=== PATIENT | male | born 1940 | race Caucasian/White ===

== ENCOUNTER 2024-10-22 14:20 | Emergency (ER) | payer MEDICARE, SELFPAY ==
[2024-10-22 14:29] VITALS: BP 170/75; PULSE 88; RESP 18; TEMP 37.4; O2SAT 96; BMI 25.1
--- NOTE | 2024-10-22 14:30 | XR_ITS ---
Examination: CT abdomen with intravenous contrast CT pelvis with intravenous contrast 2-D coronal reconstructions 2-D sagittal reconstructions Date and time of exam:October 22, 2024 1105 hours INDICATIONS: Abdominal pain beginning 2 days ago. CTDI: vol (mGy) 8.31 DLP: (mGycm) 488 Technique: Multiple axial sections of the abdomen and pelvis have been obtained. 64 slice high-resolution scanner used. 3 mm axial sections have been obtained, post intravenous injection 60 cc [id number]-370 2-D sagittal, coronal reconstructions obtained. Low dose protocols were performed. One or more of the following dose reduction techniques were used; automated exposure control, adjustment of the mA and/or KV according to patient size, use of iterative reconstruction technique. Findings: No focal liver or splenic lesions No gallstones No pancreatic or adrenal mass No renal or ureteral calculi, no hydronephrosis Perinephric stranding Aorta normal size Necrotic mass in the anterior mesentery lower abdomen, at least 9 x 8 cm Significant prostatomegaly with irregular contour No diverticulitis Moderate osteopenia IMPRESSION: Large necrotic soft tissue mass in the anterior lower abdomen, differential would include sarcoma, metastatic soft tissue tumor mass, Hodgkin's disease non-Hodgkin's lymphoma This mass is amenable to CT-guided. Then his biopsy for diagnosis
--- NOTE | 2024-10-22 14:31 | PD.EDRME ---
Rapid Medical Screening Exam RME Arrival date/time: 10/22/24 14:20 84-year-old male presents to the Emergency Department today for complaints of right-sided abdominal pain Chief Complaint: Abdominal Pain Vital signs: Vital Signs Temperature 99.3 F 10/22/24 14:29 Pulse Rate 88 10/22/24 14:29 Respiratory Rate 18 10/22/24 14:29 Blood Pressure 170/75 H 10/22/24 14:29 Pulse Oximetry (%) 96 10/22/24 14:29 Oxygen Delivery Method Room Air 10/22/24 14:29
[2024-10-22 15:02] LABS: Collection Type, Urine Clean Catch
[2024-10-22 15:21] LABS: Bilirubin,Urine Negative (Negative); Blood,Urine Negative (Negative); Clarity,Urine Clear (Clear/Hazy); Color,Urine Yellow (Lt Yel-Yel); Culture Indicated,Urine Not Indicated; Glucose, Urine Negative (Negative); Ketones,Urine Negative (Negative); Leukocyte Esterase,Urine Negative (Negative); Nitrite,Urine Negative (Negative); PH,Urine 5.5 (5.0-7.0); Protein,Urine Trace (Neg - Trace); RBC,Urine 3 /hpf (0-3); Specific Gravity,Urine 1.031 (1.001-1.035); Squamous Epithelial Cell,Urine < 1 /hpf (0-5); WBC,Urine 1 /hpf (0-5)
[2024-10-22 15:28] LABS: Lactate (Lactic Acid) 0.9 mMol/L (0.4-2.0)
[2024-10-22 15:30] LABS: Basophils # (Auto) 0.1 Thou/mm3 (0.0-0.2); Basophils % (Auto) 1 % (0-2.5); Eosinophils # (Auto) 0.2 Thou/mm3 (0.0-0.5); Eosinophils % (Auto) 2 % (0-10); Hematocrit 39.5 % (41.0-53.0); Hemoglobin 13.7 g/dL (13.5-16.0); Immature Granulocytes % (Auto) 0 % (0-0); Immature Granulocytes Auto 0.04 Thou/mm3 (0.00-0.00); Lymphocytes # (Auto) 1.5 Thou/mm3 (1.0-4.8); Lymphocytes % (Auto) 14 % (10-50); Mean Corpuscular HGB Conc 34.7 g/dl (31.0-37.0); Mean Corpuscular Hemoglobin 31.2 pg (25.0-35.0); Mean Corpuscular Volume 90 fL (80-100); Monocytes # (Auto) 1.1 Thou/mm3 (0.0-0.8); Monocytes % (Auto) 11 % (0-12); Neutrophils # (Auto) 7.7 Thou/mm3 (1.8-7.7); Neutrophils % (Auto) 73 % (37-80); Nucleated Red Blood Cell % 0 /100 WBC (0); Platelet Count 193 Thou/mm3 (140-440); RDW Standard Deviation 41.5 fL (35.1-43.9); Red Blood Count 4.39 Miln/mm3 (4.50-5.90); White Blood Count 10.6 Thou/mm3 (3.8-10.6)
[2024-10-22 15:57] LABS: Alanine Aminotransferase 54 U/L (10-49); Albumin, Serum 4.3 gm/dL (3.4-4.8); Albumin/Globulin Ratio 1.7 (1.2-2.2); Alkaline Phosphatase 182 U/L (46-116); Anion Gap 8 (7-16); Aspartate Amino Transferase 51 U/L (0-34); BUN/Creatinine Ratio 18 Ratio (12-20); Bilirubin,Total 0.4 mg/dL (0.3-1.2); Blood Urea Nitrogen 20 mg/dL (9-23); Calcium 8.9 mg/dL (8.3-10.6); Calcium (Corrected) 8.9 mg/dL (8.5-10.1); Carbon Dioxide 26.5 mMol/L (20.0-31.0); Chloride 102 mMol/L (98-107); Creatinine (Component) 1.1 mg/dL (0.6-1.3); Estimated Creatinine Clearance 51.6 mL/min (>60); Globulin 2.6 gm/dL (2.3-3.5); Glucose 110 mg/dL (74-106); Lipase 37 U/L (12-53); Osmolality,Calculated 275 (275-295); Potassium 3.8 mMol/L (3.4-5.1); Procalcitonin 0.11 ng/ml (0.0-0.49); Sodium 136 mMol/L (136-145); Total Protein 6.9 gm/dL (5.7-8.2); eGFR > 60 See Note
[2024-10-23 01:02] VITALS: BP 148/81; PULSE 73; RESP 17; TEMP 37.3; O2SAT 96
--- NOTE | 2024-10-23 01:22 | PD.EDABDPN ---
ED Abdominal Pain RME/HPI General Chief Complaint: Abdominal Pain Stated complaint: ABD PAIN Time seen by provider: 10/22/24 18:45 Arrival date/time: 10/22/24 14:20 RME / HPI RME / HPI narrative: 10/22/24 14:20 84-year-old male presents to the Emergency Department today for complaints of right-sided abdominal pain This section includes all my notes and documentations, including HPI, PE, and ED course. Neto Akins MD HPI: 84 y/o male presents to ED c/o generalized abdominal pain x 5 days. Vomited when the pain started 5 days ago. Per , patient has been eating less for the last 2-3 days. Denies any abdominal surgery in the past. No weight loss. No changes in energy level. No other complaints. ROS: All negative except as documented in HPI. Physical Exam: General: Alert and oriented. No acute distress when remaining still. Eyes: Conjunctivae and lids clear. ENT: No nasal congestion. Neck: Supple. Heart: RRR. Lungs: No respiratory distress. Good air movement. No rhonchi, wheezing, rales. Abdomen: Soft and nontender. Normal bowel sounds. No distension. No rebound or guarding. Back: No CVA tenderness. Skin: Warm and dry. Neuro: Alert and oriented X 3. I reviewed all diagnostic test results. My review of the Abdomen/Pelvis CT report is large necrotic soft tissue mass in the anterior lower abdomen. Blood tests and urine tests unremarkable. At this point, diagnoses include abdominal mass. Patient declined help with pain. After discussion, pain requested discharge home and will return tomorrow for potential biopsy. Based on my best medical judgment, made decision no further evaluation or treatment indicated at this time. Patient understands and agrees to the discharge instructions customized and printed, see below. Discharge Instructions from Dr. Akins printed for you: 1. After evaluation, you have intra-abdominal mass measuring 9 X 8 cm. We won't know the exact cause/identity of the mass until biopsy. 2. After discussing with you and your potential hospitalization and transfer to another facility, decision was made for you to go home. Since you declined any help with pain, no pain medication was prescribed. 3. We have interventional radiologist who can perform the CT-guided biopsy for you on Thursday. So you can come here again on Thursday morning (10/23/2024) as a new ER patient for the biopsy. 4. Seek immediate medical care with intolerable pain, fever, or with any concerns. Neto Akins MD Related Data Home Medications ?Medication ?Instructions ?Recorded ?Confirmed No Known Home Medications 09/14/17 09/14/17 Allergies Allergy/AdvReac Type Severity Reaction Status Date / Time fluconazole (From Diflucan) Allergy welts rash Verified 10/22/24 14:24 Review of Systems Review of Systems Systems Reviewed: All systems reviewed, normal except as documented ED Exam Narrative Physical exam: Refer to HPI above. Course Quality Measures none Orders Category Date Time Status CT Screening NOW Care 10/22/24 14:31 Active Insert IV NOW Care 10/22/24 14:[address] abdomen pelvis w con Stat Exams 10/22/24 14:30 Completed Blood Culture (Lab) Stat Lab 10/22/24 15:18 Received CBC Stat Lab 10/22/24 15:21 Completed Comprehensive Metabolic Panel Stat Lab 10/22/24 15:21 Completed Lactic Acid [Lactate (Lactic Acid)] Stat Lab 10/22/24 15:21 Completed Lipase Stat Lab 10/22/24 15:21 Completed Procalcitonin Stat Lab 10/22/24 15:21 Completed UA, C/S IF [Urinalysis, C/S if Indicated] Stat Lab 10/22/24 14:45 Completed Vital Signs Vital signs: Vital Signs Temperature 99.3 F 10/22/24 14:29 Pulse Rate 88 10/22/24 14:29 Respiratory Rate 18 10/22/24 14:29 Blood Pressure 170/75 H 10/22/24 14:29 Pulse Oximetry (%) 96 10/22/24 14:29 Oxygen Delivery Method Room Air 10/22/24 14:29 Abdominal Pain MDM MDM Narrative MDM Narrative:: Scribe Attestation: Ame Leonard, am scribing for and in the presence of Dr. Akins. Provider Notation: Although this document has been carefully reviewed, there may still be some phonetic and other typographical errors.? These errors are purely grammatical due to imperfections in the software program and should not be construed in any way to? compromise the substance of the patient's medical care during this visit. 84 y/o male presents to ED c/o generalized abdominal pain, intermittent fever, nausea, and vomiting x 5 days. Patient data External records reviewed:: [facility] previous records (No recent ED records available for review.) Clinical information provided by:: patient Social determinants that could affect healthcare access:: none Patient has the following chronic illnesses:: None reported How is presenting disease/condition affected by chronic disease/condition?: no chronic disease Evaluation data The following diagnostics were reviewed and interpreted by me:: lab results and radiology exam(s) Lab and/or radiology exams considered but not ordered:: None Interpretation Summary: I reviewed all diagnostic test results. My review of the Abdomen/Pelvis CT report is large necrotic soft tissue mass in the anterior lower abdomen. Blood tests and urine tests unremarkable. Medications / Prescriptions Medications or Prescriptions considered but not ordered:: None Medication administrations:: N/A Consultations Consultation(s) initiated? (list below): No Diagnosis Differential diagnosis abdominal pain: abdominal pain, acute appendicitis, calculus of kidney, constipation, diverticulitis, gastroenteritis, pancreatitis and small bowel obstruction Most likely diagnosis given after review of the tests above:: Abdominal mass of unclear etiology. Admission Indicated Admission indicated?: not indicated Explain why admission is indicated or not indicated:: There was no indication for admission. Admission Request Was there a request for admission?: No Disposition Plan Disposition Plan: Discharge Discharge Attestation Discharge Attestation: The patient and all family members were given an opportunity to ask questions and understood the discharge instructions. Discharge instructions specifically effects, indications for sooner follow up or return to the emergency department, and the expected course of current diagnosis. Patient condition: Stable Discharge Plan Plan Patient Disposition: HOME (Self Care) Prescriptions/Referrals Prescriptions/Med Rec: No Action No Known Home Medications Referrals: No Primary/Family,Physician [Primary Care Provider] - In 1 week Problem List Clinical Impression: Abdominal mass Patient/Caregiver Discharge Instructions Discharge Activity: activity as tolerated Education Materials: ED Tumor, Uncertain Cause Additional Instructions: Discharge Instructions from Dr. Akins printed for you: 1. After evaluation, you have intra-abdominal mass measuring 9 X 8 cm. We won't know the exact cause/identity of the mass until biopsy. 2. After discussing with you and your potential hospitalization and transfer to another facility, decision was made for you to go home. Since you declined any help with pain, no pain medication was prescribed. 3. We have interventional radiologist who can perform the CT-guided biopsy for you on Thursday. So you can come here again on Thursday morning (10/23/2024) as a new ER patient for the biopsy. 4. Seek immediate medical care with intolerable pain, fever, or with any concerns. Print Language: Yakut Stand Alone Forms: [employer] Info., Patient Portal Info Letter
== END 2024-10-23 02:01 | disposition home or self-care (01) ==
PROVIDERS: Nurse Practitioner Primary Care; Emergency Provider Emergency Medicine
DX: R19.03 Right lower quadrant abdominal swelling, mass and lump (principal)
CPT/HCPCS: 36415; 74177; 80053; 81001; 83605; 83690; 84145; 85025; 87040; 99285; A4649; Q9967

== ENCOUNTER 2024-10-24 08:13 | Emergency (ER) | payer MEDICARE, SELFPAY ==
--- NOTE | 2024-10-24 08:42 | PD.EDRME ---
Rapid Medical Screening Exam RME Arrival date/time: 10/24/24 08:13 84-year-old male with no known medical history presents to the emergency room with a chief complaint of abdominal pain and distention. Patient states he was seen here 2 days ago and a CT found a tumor in his abdomen. Patient was given instructions by Dr. Akins To return today for biopsy of the tumor. I have greeted and performed a focused initial assessment of this patient. A comprehensive ED assessment and evaluation of the patient, analysis of all test results, and completion of the medical decision making process will be conducted by additional ED providers. Chief Complaint: General Adult/Misc Complain Time Seen by Provider: 10/24/24 08:28 Vital signs reviewed by provider: Yes
[2024-10-24 08:44] VITALS: BP 142/78; PULSE 95; RESP 18; TEMP 37.2; O2SAT 96; BMI 25.2
[2024-10-24 09:48] LABS: Basophils # (Auto) 0.1 Thou/mm3 (0.0-0.2); Basophils % (Auto) 1 % (0-2.5); Eosinophils # (Auto) 0.2 Thou/mm3 (0.0-0.5); Eosinophils % (Auto) 2 % (0-10); Hematocrit 42.4 % (41.0-53.0); Immature Granulocytes % (Auto) 0 % (0-0); Immature Granulocytes Auto 0.05 Thou/mm3 (0.00-0.00); Lymphocytes # (Auto) 1.4 Thou/mm3 (1.0-4.8); Lymphocytes % (Auto) 11 % (10-50); Mean Corpuscular Hemoglobin 30.8 pg (25.0-35.0); Mean Corpuscular Volume 93 fL (80-100); Monocytes # (Auto) 1.2 Thou/mm3 (0.0-0.8); Monocytes % (Auto) 9 % (0-12); Neutrophils # (Auto) 9.8 Thou/mm3 (1.8-7.7); Neutrophils % (Auto) 77 % (37-80); Nucleated Red Blood Cell % 0 /100 WBC (0); Platelet Count 228 Thou/mm3 (140-440); RDW Standard Deviation 42.4 fL (35.1-43.9); Red Blood Count 4.54 Miln/mm3 (4.50-5.90); White Blood Count 12.7 Thou/mm3 (3.8-10.6)
[2024-10-24 09:59] LABS: Partial Thromboplastin Time 26.7 Seconds (22.0-36.0); Prothrombin Time 11.2 Seconds (9.0-12.2)
[2024-10-24 10:07] LABS: Alanine Aminotransferase 39 U/L (10-49); Albumin, Serum 4.4 gm/dL (3.4-4.8); Albumin/Globulin Ratio 1.7 (1.2-2.2); Alkaline Phosphatase 175 U/L (46-116); Anion Gap 10 (7-16); Aspartate Amino Transferase 21 U/L (0-34); BUN/Creatinine Ratio 12 Ratio (12-20); Bilirubin,Total 0.6 mg/dL (0.3-1.2); Blood Urea Nitrogen 13 mg/dL (9-23); Carbon Dioxide 28.5 mMol/L (20.0-31.0); Chloride 102 mMol/L (98-107); Creatinine (Component) 1.1 mg/dL (0.6-1.3); Estimated Creatinine Clearance 51.6 mL/min (>60); Globulin 2.6 gm/dL (2.3-3.5); Glucose 122 mg/dL (74-106); Osmolality,Calculated 280 (275-295); Potassium 4.2 mMol/L (3.4-5.1); Sodium 140 mMol/L (136-145); eGFR > 60 See Note
[2024-10-24 11:48] VITALS: BP 162/74; PULSE 67; RESP 17; TEMP 36.8; O2SAT 97
--- NOTE | 2024-10-24 12:15 | PD.EDABDPN ---
ED Abdominal Pain RME/HPI General Chief Complaint: General Adult/Misc Complain Stated complaint: CHECKING IN FOR BIOPSY Time seen by provider: 10/24/24 08:28 Arrival date/time: 10/24/24 08:13 Limitations: no limitations RME / HPI RME / HPI narrative: 10/24/24 08:13 84-year-old male with no known medical history presents to the emergency room with a chief complaint of abdominal pain and distention. Patient states he was seen here 2 days ago and a CT found a tumor in his abdomen. Patient was given instructions by Dr. Akins To return today for biopsy of the tumor. I have greeted and performed a focused initial assessment of this patient. A comprehensive ED assessment and evaluation of the patient, analysis of all test results, and completion of the medical decision making process will be conducted by additional ED providers. DR. ANDERSON MAIN ED EVALUATION: 84 year old male presents to the Emergency Department accompanied by his with complaint of abdominal pain and distention. Patient was seen on 10/22/[address] they found a tumor and was told to return for a biopsy of the tumor today. He has been having symptoms for about a week now. He states his stomach feels like a swollen ball . Per , patient had a fever of 101.0 on Thursday of last week, none since. Patient denies any weight loss, shortness of breath, or any other symptoms at this time. Patient denies any current PCP, last one was Dr. Eisenberg years ago. Related Data Home Medications ?Medication ?Instructions ?Recorded ?Confirmed No Known Home Medications 09/14/17 09/14/17 Allergies Allergy/AdvReac Type Severity Reaction Status Date / Time fluconazole (From Diflucan) Allergy welts rash Verified 10/24/24 08:18 Review of Systems Review of Systems Systems Reviewed: All systems reviewed, normal except as documented Past Medical History Past Medical History OTHER HISTORY: Positive Shingles Social History SMOKING STATUS: Never smoker SUBSTANCE USE: does not use ALCOHOL: Never ED Exam General Limitations: Present no limitations General appearance: Present alert and in no apparent distress Head Head exam: Present atraumatic, normocephalic and normal inspection Eye Eye exam: Present normal appearance, PERRL and EOMI ENT ENT exam: Present normal exam, normal oropharynx and mucous membranes moist Neck Neck exam: Present normal inspection, full ROM and trachea midline Chest Chest inspection: Present normal inspection and symmetric chest wall rise Respiratory Respiratory exam: Present normal lung sounds bilaterally Cardiovascular Cardiovascular exam: Present regular rate, normal rhythm and normal heart sounds Abdominal Exam Abdominal exam: Present distention, tenderness (slight tenderness in the mid left abdomen area) and normal bowel sounds; Absent rebound Extremities Exam Extremities exam: Present normal inspection and full ROM Back Exam Back exam: Present normal inspection and full ROM Neurological Exam Neurological exam: Present alert, oriented X3 and CN II-XII intact Psychiatric Psychiatric exam: Present normal affect and normal mood Skin Skin exam: Present warm, dry, intact and normal color Course Quality Measures none Orders Category Date Time Status CT biopsy abdomen percutaneous Stat Exams 10/24/24 08:40 Ordered CBC Stat Lab 10/24/24 09:25 Completed CMP [Comprehensive Metabolic Panel] Stat Lab 10/24/24 09:25 Completed PT [Prothrombin Time with INR] Stat Lab 10/24/24 09:25 Completed PTT [Partial Thromboplastin Time] Stat Lab 10/24/24 09:25 Completed Vital Signs Vital signs: Vital Signs Temperature 99.0 F 10/24/24 08:44 Pulse Rate 95 10/24/24 08:44 Respiratory Rate 18 10/24/24 08:44 Blood Pressure 142/78 H 10/24/24 08:44 Pulse Oximetry (%) 96 10/24/24 08:44 Oxygen Delivery Method Room Air 10/24/24 08:44 Abdominal Pain MDM MDM Narrative MDM Narrative:: IPreethi am scribing for and in the presence of Dr. Anderson. Patient data External records reviewed:: [facility] previous records (Reviewed last ED visit dated 10/22/24 discharged with the following: Abdominal mass) Clinical information provided by:: patient and spouse Social determinants that could affect healthcare access:: none Patient has the following chronic illnesses:: Abdominal mass recently found in CT otherwise no other PMHx. How is presenting disease/condition affected by chronic disease/condition?: exacerbated by Evaluation data The following diagnostics were reviewed and interpreted by me:: lab results and radiology exam(s) Lab and/or radiology exams considered but not ordered:: none Interpretation Summary: Procedure(s): CT abdomen pelvis w con Accession Number(s): [id number] cc: Faisal (BOLA),Lobito PLAZA; Jorge Allen MD; NO PRIMARY/FAMILY,PHYSICIAN~ Examination: CT abdomen with intravenous contrast CT pelvis with intravenous contrast 2-D coronal reconstructions 2-D sagittal reconstructions Date and time of exam:October 22, 2024 1105 hours INDICATIONS: Abdominal pain beginning 2 days ago. CTDI: vol (mGy) 8.31 DLP: (mGycm) 488 Technique: Multiple axial sections of the abdomen and pelvis have been obtained. 64 slice high-resolution scanner used. 3 mm axial sections have been obtained, post intravenous injection 60 cc [id number]-370 2-D sagittal, coronal reconstructions obtained. Low dose protocols were performed. One or more of the following dose reduction techniques were used; automated exposure control, adjustment of the mA and/or KV according to patient size, use of iterative reconstruction technique. Findings: No focal liver or splenic lesions No gallstones No pancreatic or adrenal mass No renal or ureteral calculi, no hydronephrosis Perinephric stranding Aorta normal size Necrotic mass in the anterior mesentery lower abdomen, at least 9 x 8 cm Significant prostatomegaly with irregular contour No diverticulitis Moderate osteopenia IMPRESSION: Large necrotic soft tissue mass in the anterior lower abdomen, differential would include sarcoma, metastatic soft tissue tumor mass, Hodgkin's disease non-Hodgkin's lymphoma This mass is amenable to CT-guided. Then his biopsy for diagnosis Dictated By: Jorge Allen MD Medications / Prescriptions Medications or Prescriptions considered but not ordered:: none Medication administrations:: none Consultations Consultation(s) initiated? (list below): No Diagnosis Differential diagnosis abdominal pain: abdominal pain, constipation and other (Abdominal mass) Most likely diagnosis given after review of the tests above:: Abdominal mass Admission Indicated Admission indicated?: not indicated Admission Request Was there a request for admission?: No Disposition Plan Disposition Plan: Discharge Discharge Attestation Discharge Attestation: The patient and all family members were given an opportunity to ask questions and understood the discharge instructions. Discharge instructions specifically effects, indications for sooner follow up or return to the emergency department, and the expected course of current diagnosis. Patient condition: Stable Discharge Plan Plan Patient Disposition: HOME (Self Care) Patient condition on transfer: Stable Prescriptions/Referrals Prescriptions/Med Rec: No Action No Known Home Medications Referrals: Luli Mcbride MD [Physician] - 10/25/24 No Primary/Family,Physician [Primary Care Provider] - In 1 week Problem List Clinical Impression: Abdominal mass Patient/Caregiver Discharge Instructions Additional Instructions: Please follow up with Dr. Mcbride. Please follow-up with your primary care physician within a week. Return to the Emergency Department as needed. If you need a primary doctor you can go to the residents clinic: [address] [place] [id number] Print Language: [place]i Stand Alone Forms: [employer] Info., Work/School Release, Patient Portal Info Letter
[2024-10-24 13:20] VITALS: BP 146/78; PULSE 79; RESP 17; TEMP 37; O2SAT 98
== END 2024-10-24 13:39 | disposition home or self-care (01) ==
PROVIDERS: Nurse Practitioner Family; Emergency Provider Family Medicine
DX: R19.00 Intra-abdominal and pelvic swelling, mass and lump, unspecified site (principal)
CPT/HCPCS: 36415; 80053; 85025; 85610; 85730; 99283

== ENCOUNTER 2024-11-03 08:00 | Outpatient (CLI) | payer MEDICARE, SELFPAY ==
[2024-11-01 18:27] VITALS: BMI 22.9
[2024-11-03] VITALS (8 sets, daily range): BP systolic 106–149; BP diastolic 53–89; PULSE 69–90; RESP 12–20; TEMP 36.4–36.7; O2SAT 95–99
[2024-11-03 08:58] LABS: Basophils # (Auto) 0.1 Thou/mm3 (0.0-0.2); Basophils % (Auto) 1 % (0-2.5); Eosinophils # (Auto) 0.1 Thou/mm3 (0.0-0.5); Eosinophils % (Auto) 1 % (0-10); Hematocrit 42.3 % (41.0-53.0); Hemoglobin 14.4 g/dL (13.5-16.0); Immature Granulocytes % (Auto) 1 % (0-0); Immature Granulocytes Auto 0.05 Thou/mm3 (0.00-0.00); Lymphocytes # (Auto) 1.4 Thou/mm3 (1.0-4.8); Lymphocytes % (Auto) 14 % (10-50); Mean Corpuscular Hemoglobin 30.6 pg (25.0-35.0); Mean Corpuscular Volume 90 fL (80-100); Monocytes # (Auto) 0.9 Thou/mm3 (0.0-0.8); Monocytes % (Auto) 9 % (0-12); Neutrophils # (Auto) 7.4 Thou/mm3 (1.8-7.7); Neutrophils % (Auto) 74 % (37-80); Nucleated Red Blood Cell % 0 /100 WBC (0); Platelet Count 299 Thou/mm3 (140-440); RDW Standard Deviation 40.8 fL (35.1-43.9)
[2024-11-03 09:09] LABS: Blood Urea Nitrogen 16 mg/dL (9-23); Creatinine (Component) 1.1 mg/dL (0.6-1.3); Estimated Creatinine Clearance 51.3 mL/min (>60); eGFR > 60 See Note
--- NOTE | 2024-11-03 09:30 | XR_ITS ---
Examination: CT-guided percutaneous biopsy anterior abdominal mass CT abdomen without intravenous contrast Date and time of procedure: November 03, 2024 1040 hours INDICATIONS: Large necrotic soft tissue mass in the anterior lower abdomen on CT abdomen pelvis October 22, 2024 Informed consent provided. A timeout was completed verifying correct patient, procedure, site and positioning. Technique: Axial 3 mm sections were obtained for localization of the soft tissue mass anterior abdomen Appropriate area is marked. The patient's site was prepped and draped in sterile fashion Maximal sterile barrier technique utilized, including hand hygiene Local anesthesia was obtained with 1% lidocaine. Low dose protocols were performed. One or more of the following dose reduction techniques were used; automated exposure control, adjustment of the mA and/or KV according to patient size, use of iterative reconstruction technique. Utilizing CT fluoroscopic guidance for core biopsies obtained of the soft tissue mass abdomen Patient appears in stable condition during this procedure. At completion of the procedure, the patient is in satisfactory condition. Estimated blood loss 0 cc Complete pathology report to follow. Impression: Successful CT-guided percutaneous biopsy anterior abdominal mass
[2024-11-03] MEDS: SODIUM CHLORIDE 0.9% 500 ML 500 ML 20 ML IV (11:00)
[2024-11-03] MEDS: fentaNYL CIT INJ 50 mCg/ML AMP 2ML IVP (11:01)
[2024-11-03 11:30] LABS: INR 1.1 (0.9-1.3); Partial Thromboplastin Time 27.2 Seconds (22.0-36.0); Prothrombin Time 11.6 Seconds (9.0-12.2)
--- NOTE | 2024-11-03 12:10 | PC.NURSE ---
patient transfered to private vehicle via wheelchair. dressing clean dry and intact. education given to both patient and spouse. both expressed verbal understanding. specimen drop off at designated location for parts picker.
== END 2024-11-03 12:12 | disposition home or self-care (01) ==
PROVIDERS: Radiology Diagnostic Radiology; PCP Student in an Organized Health Care Education/Training Program; Referring Provider Student in an Organized Health Care Education/Training Program; Visit Provider Student in an Organized Health Care Education/Training Program
DX: M79.89 Other specified soft tissue disorders (principal)
CPT/HCPCS: 49180; 36415; 77012; 82565; 84520; 85025; 85610; 85730; J3010; J7040

== ENCOUNTER → 2024-12-21 | Outpatient (CLI) | payer MEDICARE, SELFPAY ==
[2024-12-20 11:09] LABS: Blood Urea Nitrogen 16 mg/dL (9-23); Creatinine (Component) 1.1 mg/dL (0.6-1.3); eGFR > 60 See Note
--- NOTE | 2024-12-21 10:30 | XR_ITS ---
Examination: CT abdomen with intravenous contrast CT pelvis with intravenous contrast 2-D coronal reconstructions 2-D sagittal reconstructions Date and time of exam:December 21, 2024 at 10:56 AM Comparison October 22, 2024 INDICATIONS: Right lower abdominal pain and swelling 1 week, history large necrotic soft tissue mass in the anterior lower abdomen on CT abdomen pelvis October 22, 2024. CTDI: vol (mGy) 13.8 DLP: (mGycm) 560 Technique: Multiple axial sections of the abdomen and pelvis have been obtained. 64 slice high-resolution scanner used. 3 mm axial sections have been obtained, post intravenous injection 60 cc Isovue-370 2-D sagittal, coronal reconstructions obtained. Low dose protocols were performed. One or more of the following dose reduction techniques were used; automated exposure control, adjustment of the mA and/or KV according to patient size, use of iterative reconstruction technique. Findings: No interval liver or splenic lesions No gallstones No pancreatic or adrenal mass No renal or ureteral calculi, no hydronephrosis The necrotic mass in the right lower abdomen anteriorly is again depicted, 8.6 x 8.5 cm Normal appendix Subcentimeter lymph nodes adjacent to this necrotic mass Minimal urinary bladder wall thickening AP prostate dimension 4.7 cm Grade 1 anterolisthesis L4 on L5 Prominent osteopenia IMPRESSION: Again noted necrotic mass in the right lower anterior abdomen, 8.6 x 8.5 cm with adjacent subcentimeter lymph nodes
== END | disposition home or self-care (01) ==
PROVIDERS: PCP Internal Medicine; Referring Provider Surgery; Visit Provider Surgery
DX: R19.03 Right lower quadrant abdominal swelling, mass and lump (principal); R10.31 Right lower quadrant pain
CPT/HCPCS: 36415; 74177; 82565; 84520; A4649; Q9967